=== PATIENT | male | born 1960 | race Caucasian/White ===

== ENCOUNTER → 2018-06-02 09:50 | Outpatient (CLI) | payer BC, SELFPAY ==
[2018-06-02 12:27] LABS: Absolute Lymphocyte Count 3.25 X10^3/ul (0.83-4.51); Absolute Neutrophil Count 6.8 X10^3/uL (2.0-7.7); Basophil# 0.08 X10^3/uL; Basophil% 0.7 % (0-1); Eosinophil# 0.28 X10^3/uL; Eosinophils% 2.5 % (0-5); Hematocrit 45.5 % (40-54); Hemoglobin 15.2 g/dl (13.0-16.5); Lymphocyte # 3.25 X10^3/ul (4.0); Lymphocyte % 28.8 % (19-41); Mean Corp Hgb Conc 33.4 g/gl (32-36); Mean Corpuscular Volume 98.9 fL (80-94); Mean Platelet Vol. 9.8 fl (6.2-12.0); Monocyte# 0.86 X10^3/uL; Monocyte% 7.6 % (0-10); Neutrophil % 60.2 % (47-70); Platelet Count 205 K/mm3 (150-450); RBC Distribution Width CV 12.7 % (11.6-14.6); RBC Distribution Width SD 46.2 fl (35.1-43.9); White Blood Count 11.3 K/mm3 (4.4-11.0)
[2018-06-02 12:39] LABS: POSITIVE COUNT NO; POSITIVE DIFFERENTIAL NO; POSITIVE MORPHOLOGY NO
[2018-06-02 12:44] LABS: ALB/GLOB Ratio 1.1 RATIO (0.9-2.4); AST(SGOT) 19 U/L (15-37); Alanine Aminotransfer ALT/SGPT 23 U/L (16-61); Albumin, Serum 3.8 g/dL (3.2-5.0); Alkaline Phosphatase 79 U/L (45-117); Anion Gap 5 (5-15); BUN 12 mg/dL (7-18); BUN/Creat Ratio 12.1 RATIO (10-20); Calcium,Total 8.4 mg/dL (8.5-10.1); Chloride 106 mmol/L (98-107); Cholesterol 164 mg/dL (200); Creatinine, Serum 0.99 mg/dL (0.70-1.30); EST Glomerular Filtration Rate 83 mL/min (>60); Est Glom Filt Rate - Afr Amer 100 mL/min (>60); Globulin 3.5 g/dL (2.2-4.2); Glucose 76 mg/dL (74-106); High Density Lipoprotein 36 mg/dL; PSA,Total - Annual Screen 1.29 ng/mL (0.00-4.00); Potassium 4.1 mmol/L (3.5-5.1); Protein, Total 7.3 g/dL (6.4-8.2); Sodium Level 140 mmol/L (136-145); Triglycerides 124 mg/dL; Very Low Density Lipoprotein 25 mg/dL (5-40)
== END ==
PROVIDERS: Family Provider Family Medicine; PCP Family Medicine; Visit Provider Family Medicine
DX: Z00.01 Encounter for general adult medical examination with abnormal findings (principal); Z12.5 Encounter for screening for malignant neoplasm of prostate
CPT/HCPCS: 36415; 80053; 80061; 84153; 85025; G0103

== ENCOUNTER 2019-04-03 17:00 | Emergency (ER) | payer BC, SELFPAY ==
[2019-04-03 17:01] VITALS: BP 149/93; PULSE 72; RESP 16; TEMP 36.3; O2SAT 96; BMI 24.4
--- NOTE | 2019-04-03 17:09 | ED.DCSUM_ITS ---
History of Present Illness Chief Complaint: Back Informant: Patient Onset: Yesterday Context: Gradual Onset Timing: Continuous Current Severity: Moderate Maximum Severity: Moderate Narrative: The patient presents to the emergency department for exacerbation of his back pain. Patient has had 2 prior lumbar surgeries. He states on Tuesday, he was moving a full. He states he was lifting it up. He really did not feel much until the next day. Since then, he had persistent pain in his low back. It does not radiate down his legs. He denies any difficulty urinating or moving his bowels. He does have significant allergies to pain medication. He is scheduled to see his spine surgeon, but not until . He states just came here because he cannot get his pain under control. He denies any direct trauma. He has not fallen. He states his gait has been normal and steady. Prior similar symptoms: Yes Recent Illness/Hospitalization: No Past Medical History - Allergies and Home Meds Allergies/Adverse Reactions: Allergies codeine Allergy (Unknown, Verified 10/07/16 08:14) Unknown hydrocodone bitartrate [From Vicodin] Allergy (Verified 10/07/16 08:14) Other oxycodone HCl [From Percocet] Allergy (Verified 10/07/16 08:14) Other Primary Care Physician: Anam Quintero DO [Primary Care Provider] - Prior records reviewed: Yes Past Medical History: - - GERD Surgical History: - - Prior back surgery Smoking Status: Current every day smoker Review of Systems General: Denies: Chills, Fever, Sweats Eyes: Denies: Visual changes - bilaterally, Diplopia ENT: Denies: Rhinorrhea, Sore throat Cardiovascular: Denies: Chest pain, Palpitations Respiratory: Denies: Dyspnea, Cough, Dyspnea on exertion Gastrointestinal: Denies: Abdominal pain, Nausea, Vomiting, Diarrhea, Melena, Hematochezia Genitourinary: Denies: Dysuria, Hematuria, Frequency Musculoskeletal: Reports: Back pain. Denies: Extremity Pain Skin: Denies: Rash, Wounds Neurological: Denies: Headache, Weakness, Numbness Physical Exam Vital Signs/Narrative: Vital Signs Temp Pulse Resp BP Pulse Ox 04/03/19 17:01 97.3 F L 72 16 149/93 H 96 Inital Vital Signs reviewed: Yes General: Well nourished, Well developed, No Acute Distress Head: Normocephalic, Atraumatic Eyes: Perrl, EOMI ENT: Moist mucous membranes, No rhinorrhea Neck: Supple, Nontender Cardiovascular: Regular rate, Regular rhythm, No murmurs Respiratory: No distress, CTA bilaterally, Chest nontender Abdomen: Soft, Nontender, Nondistended, Normal bowel sounds, No masses. Negative for: Pulsatile mass Back: Normal Inspection, - - Paraspinal tenderness on the right. Normal pulses. Normal reflexes. No weakness. No weakness of dorsiflexion, plantar flexion, or extensor hallucis longus.. Negative for: Spinal tenderness Extremities: Nontender, No edema Skin: Normal color, No rash Neurological: Alert, Oriented x3, Cranial nerves II-XII grossly intact, Normal Strength, Normal Sensation Psychological: Normal affect, Normal Mood Diagnostic/Tx/Re-eval - Medical Decision Making The patient has a reassuring physical exam. He has no red flag symptoms. He has normal reflexes. He has had no symptoms of discitis, epidural abscess, and he has had no trauma. The patient was treated with IM analgesics and anti- inflammatories. I will give him a short course of antispasmodics for home. He will follow-up with his spine surgeon as previously scheduled or return with any worsening symptoms. Impression 1. Exacerbation of low back pain ED Disposition - Plan for ED Patient: Instructions: Back Sprain/Strain Prescriptions: Diazepam [Valium] 5 mg PO Q8 PRN #10 tab PRN Reason: Muscle Spasm Prescription Printed Referrals: Anam Quintero DO [Primary Care Provider] -
[2019-04-03] MEDS: Ketorolac 60 MG/2 ML Vial IM (17:21)
[2019-04-03] MEDS: HYDROmorphone 1 MG/ML Syringe IM (17:22)
[2019-04-03 17:57] VITALS: RESP 16
== END 2019-04-03 17:58 | disposition home or self-care (01) ==
PROVIDERS: Emergency Provider Emergency Medicine; Family Provider Family Medicine; PCP Family Medicine
DX: M54.5 Low back pain (principal); K21.9 Gastro-esophageal reflux disease without esophagitis; F17.200 Nicotine dependence, unspecified, uncomplicated; Z88.5 Allergy status to narcotic agent
CPT/HCPCS: 96372; 99282

== ENCOUNTER 2019-04-06 14:49 | Emergency (ER) | payer BC, SELFPAY ==
[2019-04-06 14:51] VITALS: BP 143/85; PULSE 61; RESP 18; TEMP 36.4; O2SAT 98; BMI 25.1
[2019-04-06] MEDS: HYDROmorphone 1 MG/ML Syringe SC (16:07)
--- NOTE | 2019-04-06 16:20 | RAD_ITS ---
STUDY: X-RAY - LUMBAR SPINE REASON FOR EXAM: Male, 59 years old. Low back pain TECHNIQUE: 3 view(s) of the lumbar spine were obtained. COMPARISON: None FINDINGS: There is no evidence of fracture or dislocation in the lumbar spine. The vertebral body heights and disc spaces are well-maintained. Mild to moderate osteophytosis is present from L2 through L4. RAD/Lumbar Spine 2 or 3 Views IMPRESSION: No fracture or dislocation in the lumbar spine. Mild to moderate osteophytosis from L2 through L4. Electronically Signed: Travis Zhou, at 16:43 EDT Tel , Service support ,
--- NOTE | 2019-04-06 16:20 | ED.DCSUM_ITS ---
History of Present Illness Chief Complaint: Back Narrative: Patient presenting for evaluation secondary to back pain. Patient has a underlying history of having some back issues in the past, had 2 surgeries most recent being in August 2017. Patient states that about 5 days ago he was lifting a 4 maki into the back of a truck and injured his back. He reports that he had a sudden onset of back pain at that point that seemed to get somewhat better. He was seen in the emergency department for this earlier this week, received analgesia had a reassuring exam and was discharged. Patient had a follow-up appointment with his spine surgeon yesterday who placed him on a course of prednisone and ordered him a MRI to be performed in 10 days. Patient states that he is having worsening pain since his appointment yesterday and now has some radiation down his right leg. He reports that the pain is worse with trying to weight-bear, and is associated with some subjective feelings of numbness. Patient denies that he is having any sort of fevers, unintended weight loss, night sweats. No recent surgeries or injections. No history of IV drug abuse in the past. No bowel or bladder incontinence. Review of systems otherwise negative. Past Medical History - Allergies and Home Meds Allergies/Adverse Reactions: Allergies codeine Allergy (Unknown, Verified 04/06/19 14:50) Unknown hydrocodone bitartrate [From Vicodin] Allergy (Verified 04/06/19 14:50) Other oxycodone HCl [From Percocet] Allergy (Verified 04/06/19 14:50) Other Primary Care Physician: Anam Quintero DO [Primary Care Provider] - Past Medical History: - - Prior back pain and back surgeries Surgical History: - - Prior back surgery Smoking Status: Current every day smoker Review of Systems All systems negative except as indicated Musculoskeletal: Reports: Back pain Physical Exam Vital Signs/Narrative: Vital Signs Temp Pulse Resp BP Pulse Ox 04/06/19 14:51 97.6 F L 61 18 143/85 H 98 General: Well nourished, Well developed Head: Normocephalic, Atraumatic Eyes: Perrl, EOMI ENT: Moist mucous membranes, No rhinorrhea Neck: Supple, Nontender Cardiovascular: Regular rate, Regular rhythm, No murmurs, - - 2+ radial and 2+ DP pulses bilaterally symmetric Respiratory: No distress, CTA bilaterally, Chest nontender Abdomen: Soft, Nontender, Nondistended, Normal bowel sounds. Negative for: Mass - No palpable pulsatile mass Back: Normal Inspection, - - Minimal lumbar midline tenderness to palpation with no step-offs noted Extremeties: Nontender, No edema Skin: Normal color, No rash Neuro: Alert, Oriented, - - 5 out of 5 strength at the hip knee ankle and foot. Normal sensation over all dermatomes. 2+ patellar and Achilles reflexes bilate rally symmetric, negative clonus and Babinski. Psychological: Normal affect Diagnostic/Tx/Re-eval X-Ray: LS SPine, Read by ED Physician, Read by Radiologist, No Fracture, Normal Bony Alignment - Medical Decision Making Patient presented secondary to back pain. As this is his second visit for back pain, I did do imaging which was negative by my personal review as well as radiology. Patient was given subcutaneous Dilaudid. Repeat evaluation of the patient shows him to have improved pain, and he was able to ambulate with the help of walker. Patient at this time has no red flag signs or symptoms. He has normal motor sensory exam, no signs of cauda equina spinal epidural abscess or hematoma or other serious pathology that would require neuroimaging or immediate intervention. I reviewed the patient's prescription reporting record, he does not have any opiate medications on there at all actually, so the patient will be provided with a protracted course of p.o. Dilaudid as he states that that is what he is able to take and that is what helps. Patient has follow-up with his spine surgeon in 10 days for MRI and repeat evaluation. Disposition: Home ED Disposition - Plan for ED Patient: Disposition: Home or Assisted Living Diagnosis: Lumbar radiculopathy Prescriptions: HYDROmorphone tablet [Dilaudid] 2 mg PO BID PRN PRN 7 Days #20 tab PRN Reason: Pain Prescription Printed Additional Instructions: Followup with your spine surgeon
[2019-04-06 17:08] VITALS: BP 140/89; PULSE 60; RESP 16; O2SAT 96
--- NOTE | 2019-04-06 17:29 | ED.DEP ---
ED Disposition - Plan for ED Patient: Disposition: Home or Assisted Living Diagnosis: Lumbar radiculopathy Instructions: BACK PAIN w/ SCIATICA Prescriptions: HYDROmorphone tablet [Dilaudid] 2 mg PO BID PRN PRN 7 Days #20 tab PRN Reason: Pain Prescription Printed Referrals: Anam Quintero DO [Primary Care Provider] - Additional Instructions: Followup with your spine surgeon
== END 2019-04-06 17:57 | disposition home or self-care (01) ==
PROVIDERS: Emergency Provider Emergency Medicine; Family Provider Family Medicine; PCP Family Medicine
DX: M54.16 Radiculopathy, lumbar region (principal); F17.200 Nicotine dependence, unspecified, uncomplicated; Z88.5 Allergy status to narcotic agent
CPT/HCPCS: 72100; 99283

== ENCOUNTER → 2019-06-26 07:46 | Outpatient (CLI) | payer BC, SELFPAY ==
[2019-06-26 08:27] LABS: Absolute Lymphocyte Count 2.98 X10^3/uL (0.83-4.51); Absolute Neutrophil Count 7.2 X10^3/uL (2.0-7.7); Basophil# 0.09 X10^3/uL; Basophil% 0.8 % (0-1); Eosinophil# 0.33 X10^3/uL; Eosinophils% 2.9 % (0-5); Hematocrit 46.2 % (40-54); Hemoglobin 15.4 g/dL (13.0-16.5); Lymphocyte # 2.98 X10^3/ul (4.0); Lymphocyte % 26.3 % (19-41); Mean Corp Hgb Conc 33.3 g/dL (32-36); Mean Corpuscular Hgb 33.3 pg (27.0-32.0); Mean Corpuscular Volume 99.8 fL (80-94); Mean Platelet Vol. 9.1 fl (6.2-12.0); Monocyte# 0.73 X10^3/uL; Monocyte% 6.4 % (0-10); NRBC Flagged by Analyzer 0 % (0-5); Neutrophil # 7.16 X10^3/uL (2.7-7.7); Neutrophil % 63.2 % (47-70); Platelet Count 214 K/mm3 (150-450); RBC Distribution Width CV 12.2 % (11.6-14.6); RBC Distribution Width SD 45.2 fl (35.1-43.9); Red Blood Count 4.63 M/mm3 (4.6-6.2); White Blood Count 11.3 K/mm3 (4.4-11.0)
[2019-06-26 08:54] LABS: AST(SGOT) 14 U/L (15-37); Alanine Aminotransfer ALT/SGPT 16 U/L (16-61); Albumin, Serum 3.6 g/dL (3.2-5.0); Alkaline Phosphatase 77 U/L (45-117); Anion Gap 3 (5-15); BUN 11 mg/dL (7-18); BUN/Creat Ratio 11.8 RATIO (10-20); Calcium,Total 8.7 mg/dL (8.5-10.1); Chloride 111 mmol/L (98-107); Cholesterol 182 mg/dL (200); Creatinine, Serum 0.93 mg/dL (0.70-1.30); EST Glomerular Filtration Rate 88 mL/min (>60); Est Glom Filt Rate - Afr Amer 107 mL/min (>60); Globulin 3.5 g/dL (2.2-4.2); Glucose 89 mg/dL (74-106); High Density Lipoprotein 37 mg/dL; PSA,Total - Annual Screen 1.08 ng/mL (0.00-4.00); Potassium 4.2 mmol/L (3.5-5.1); Protein, Total 7.1 g/dL (6.4-8.2); Sodium Level 144 mmol/L (136-145); Triglycerides 145 mg/dL; Very Low Density Lipoprotein 29 mg/dL (5-40)
== END ==
PROVIDERS: Family Provider Family Medicine; PCP Family Medicine; Referring Provider Family Medicine; Visit Provider Family Medicine
DX: Z00.00 Encounter for general adult medical examination without abnormal findings (principal); Z12.5 Encounter for screening for malignant neoplasm of prostate
CPT/HCPCS: 36415; 80053; 80061; 84153; 85025; G0103

== ENCOUNTER → 2020-07-22 08:43 | Outpatient (CLI) | payer BC, SELFPAY ==
[2020-07-22 09:16] LABS: Absolute Lymphocyte Count 2.65 X10^3/uL (0.83-4.51); Absolute Neutrophil Count 5.5 X10^3/uL (2.0-7.7); Basophil# 0.08 X10^3/uL; Basophil% 0.9 % (0-1); Eosinophil# 0.26 X10^3/uL; Eosinophils% 2.8 % (0-5); Hemoglobin 15.2 g/dL (13.0-16.5); Lymphocyte # 2.65 X10^3/ul (4.0); Lymphocyte % 28.7 % (19-41); Mean Corp Hgb Conc 32.3 g/dL (32-36); Mean Corpuscular Hgb 31.6 pg (27.0-32.0); Mean Corpuscular Volume 97.7 fL (80-94); Mean Platelet Vol. 9.3 fl (6.2-12.0); Monocyte# 0.75 X10^3/uL; Monocyte% 8.1 % (0-10); NRBC Flagged by Analyzer 0 % (0-5); Neutrophil # 5.45 X10^3/uL (2.7-7.7); Neutrophil % 59.2 % (47-70); Platelet Count 178 K/mm3 (150-450); RBC Distribution Width CV 11.9 % (11.6-14.6); RBC Distribution Width SD 43.8 fl (35.1-43.9); Red Blood Count 4.81 M/mm3 (4.6-6.2); White Blood Count 9.2 K/mm3 (4.4-11.0)
[2020-07-22 09:45] LABS: AST(SGOT) 15 U/L (15-37); Alanine Aminotransfer ALT/SGPT 17 U/L (16-61); Albumin, Serum 3.5 g/dL (3.2-5.0); Alkaline Phosphatase 92 U/L (45-117); Anion Gap 3 (5-15); BUN 11 mg/dL (7-18); BUN/Creat Ratio 10.3 RATIO (10-20); Calcium,Total 8.6 mg/dL (8.5-10.1); Chloride 109 mmol/L (98-107); Cholesterol 152 mg/dL (200); Creatinine, Serum 1.07 mg/dL (0.70-1.30); EST Glomerular Filtration Rate 75 mL/min (>60); Est Glom Filt Rate - Afr Amer 91 mL/min (>60); Globulin 3.6 g/dL (2.2-4.2); Glucose 82 mg/dL (74-106); High Density Lipoprotein 37 mg/dL; Potassium 4.3 mmol/L (3.5-5.1); Protein, Total 7.1 g/dL (6.4-8.2); Sodium Level 143 mmol/L (136-145); Triglycerides 90 mg/dL; Very Low Density Lipoprotein 18 mg/dL (5-40)
== END ==
LOC: LAB 08:45
PROVIDERS: PCP Family Medicine; Referring Provider Family Medicine; Visit Provider Family Medicine
DX: Z00.00 Encounter for general adult medical examination without abnormal findings (principal); Z12.5 Encounter for screening for malignant neoplasm of prostate
CPT/HCPCS: 36415; 80053; 80061; 84153; 85025; G0103

== ENCOUNTER → 2020-08-05 14:02 | Outpatient (CLI) | payer BC, SELFPAY ==
--- NOTE | 2020-08-05 14:05 | BI_ITS ---
MAMMOGRAPHY - BILATERAL DIAGNOSTIC REASON FOR EXAM: Male, 60 years old. Right breast lump. PERTINENT HISTORY: Non-contributory. TECHNIQUE: Digital bilateral breast rizwan (3D mammographic acquisition) in the CC and MLO projections. 2-D mediolateral oblique (MLO) and craniocaudad (CC) views of both breasts were obtained. CAD: Full Field Digital Mammography with Computer Added Detection was performed. COMPARISON: None. Baseline examination. FINDINGS: Breast Composition: The breasts are almost entirely fatty. There are no dominant masses or suspicious calcifications. No other significant abnormalities are identified. BI/DIAG MAMM W/CAD, BILAT IMPRESSION: Negative diagnostic mammogram. With the patient''s history of a palpable lump in the right breast, correlation with ultrasound is recommended. ASSESSMENT CATEGORY: BIRADS Category 0: Incomplete. Need additional imaging evaluation. A letter regarding these results will be sent to the patient by the facility within 30 days. Approximately 10% of breast cancers are not detected by mammography. A normal mammogram should not delay biopsy of a clinically suspicious abnormality. Electronically Signed: Roberto Alford MD at 15:25 EST , Service support ,
--- NOTE | 2020-08-05 14:05 | US_ITS ---
STUDY: ULTRASOUND BREAST - RIGHT REASON FOR EXAM: Male, 60 years old. Palpable lump in the right breast. TECHNIQUE: Axial and longitudinal images of the RIGHT breast were performed with a high resolution ultrasound transducer. # OF IMAGES: 22 COMPARISON: Comparison is made with prior mammogram done earlier in the day. FINDINGS: RIGHT Breast: The palpable abnormality corresponds to a 1 cm x 1 cm x 0.4 cm hypoechoic solid nodule. A biopsy is recommended. US/Breast Limited Unilateral IMPRESSION: The palpable abnormality corresponds to a 1 cm x 1 cm x 0.4 cm hypoechoic solid nodule. A biopsy recommended. ASSESSMENT CATEGORY: BIRADS Category 4: Suspicious - Biopsy Should Be Considered. A letter regarding these results will be sent to the patient by the facility within 30 days. Electronically Signed: Roberto Alford MD at 9:14 EST , Service support ,
== END ==
PROVIDERS: PCP Family Medicine; Referring Provider Family Medicine; Visit Provider Family Medicine
DX: N63.41 Unspecified lump in right breast, subareolar (principal); F17.200 Nicotine dependence, unspecified, uncomplicated
CPT/HCPCS: 76642; 77062; 77066; G0279

== ENCOUNTER → 2020-08-19 15:23 | Outpatient (CLI) | payer BC, SELFPAY ==
--- NOTE | 2020-08-19 | BRBX_PTH ---
PATIENT: CYNDIE JENNINGS LOC: [facility] U#:[id number] AGE/SX: 65/M ROOM: RE08/19/[address]: Dr. Hao Degroot MD : 1960 BED: DIS: SPEC #: [id number] RECD: 08/19/20 15:13 STATUS: MARIPOSA KENDRICK #: [id number] TANIA: 08/19/20 00:[address]: Hao Degroot DEPT: SURGICAL PATHOLOGY RECD BY: Ralph Beltran ENTERED: 08/20/20 09:36 SP TYPE: BREAST BX OTHR DR: Dr. Anam Quintero DO Tissues: Right breast, NOS Procedures: Special Stain Group I Surgery Specimen Level IV AFB Stain (control) GMS Stain (control) HEADER OPERATION: Excisional right breast biopsy PRE-OP DIAGNOSIS: Right breast mass TISSUE SUBMITTED: Right breast mass, ? cyst MICROSCOPIC DIAGNOSIS Right breast mass, excisional biopsy: Granulation with associated acute and chronic inflammation. Negative for acid-fast bacilli and fungal organisms. No evidence of malignancy. See comment. AM:leena 08/21/2020 COMMENT AFB and GMS stains with matched controls were used in the evaluation of this case. MICROSCOPIC DESCRIPTION Slides are reviewed. GROSS DESCRIPTION Received in fixative is one container labeled with the patient's name and designated right breast tissue. The specimen consists of two irregular fragments of yellow-pink soft tissue that in aggregate measure 1.6 x 1 x 0.5 cm. The largest fragment is bisected and totally submitted along with the smaller fragment in one cassette. / AM:leena 08/20/20 TC:2 CPT: 39879, 35823 x2
== END ==
LOC: LABSPEC 15:34
PROVIDERS: PCP Family Medicine; Referring Provider Surgery; Visit Provider Surgery
DX: N63.0 Unspecified lump in unspecified breast (principal)
CPT/HCPCS: 88305; 88312

== ENCOUNTER 2021-10-12 06:01 | Day surgery (SDC) | payer BC, SELFPAY ==
[2021-10-12] VITALS (7 sets, daily range): BP systolic 115–128; BP diastolic 74–85; PULSE 48–57; RESP 16–18; TEMP 36.4–37; O2SAT 93–98; BMI 21.5
[2021-10-12] MEDS: Lactated Ringers 1,000 ML 15 ML IV (06:34)
--- NOTE | 2021-10-12 07:18 | PCM.HP.BLA ---
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 Is patient in pain?: No Allergies guaifenesin [From Mucinex D] Allergy (Mild, Verified 10/05/21 14:05) PT UNSURE OF REACTION pseudoephedrine [From Mucinex D] Allergy (Mild, Verified 10/05/21 14:05) PT UNSURE OF REACTION codeine Allergy (Unknown, Verified 10/05/21 14:05) Unknown hydrocodone bitartrate [From Vicodin] Allergy (Verified 10/05/21 14:05) Other oxycodone HCl [From Percocet] Allergy (Verified 10/05/21 14:05) Other Medications aspirin 81 mg PO DAILY@0800 10/26/14 [History Confirmed 10/05/21] multivitamin 1 tab PO DAILY 10/26/14 [History Confirmed 10/05/21] gabapentin 600 mg PO TIDCM 04/06/19 [History Confirmed 10/05/21] hydromorphone 2 mg tablet 2 mg PO Q6H 08/11/20 [History Confirmed 10/05/21] sildenafil 25 mg tablet 25 mg PO DAILY PRN 08/11/20 [History Confirmed 10/05/21] PFSH Medical History (Updated 10/06/21 @ 11:[address] Hao Degroot MD) Chronic back pain Erectile dysfunction GERD (gastroesophageal reflux disease) Herniated disc Neuropathy Venous insufficiency Surgical History History of back surgery S/P hemorrhoidectomy S/P hernia surgery S/P laparoscopic cholecystectomy S/P shoulder surgery Social History Smoking Status: Current every day smoker alcohol intake: never HPI HPI HPI: CYNDIE JENNINGS, is a 61 M who presents to the office today for right breast lesion. The patient had excision of a sebaceous cyst in the right breast about a year ago. He says he was fine for about 6 months and then started having infections in this area and the does spontaneously drained. He recently had an infection about 2 months ago which was inflamed and drained and required antibiotics. ROS General General: No weight change or fatigue HEENT HEENT: No difficulty swallowing Endo Endocrine: No thyroid disease Musc Musculoskeletal: No back problems or arthritis Cardio Cardiovascular: No pacemaker, heart disease, atrial fibrillation, high blood pressure, heart attack, heart stent, palpitations or chest pain Psych Psychiatric: No depression or anxiety Resp Respiratory: No shortness of breath, No cough, No COPD, No asthma and No emphysema Gastro Gastrointestinal: No abdominal pain, No nausea or vomiting, No diarrhea, No constipation, No blood in stool, No acid reflux, No hemorrhoids, No ulcers, No gallbladder problem and No black,tarry stools Kunal Hematologic: No blood thinners Exam Const General: cooperative Orientation: alert and oriented x3 HENMT Head: normal to inspection Neck Neck: normal visual inspection and full ROM Chest Chest palpation & inspection: normal inspection of the chest Other: Right breast mass under the nipple Resp Effort & Inspection: normal respiratory effort Auscultation: clear to auscultation bilaterally Cardio Rate: regular rate Rhythm: regular rhythm GI Inspection: non-distended Palpation: soft and nontender Skin General: no rashes or lesions noted Neuro General: patient alert and patient oriented x3 Extrem General: full ROM Psych Appearance: grossly normal Mental Status: mental status grossly normal Assessment and Plan Assessment and Plan (1) Inclusion cyst of right breast: Status: Acute Plan - Dr. Hao Degroot MD: The patient has a likely sebaceous cyst of the right breast under the nipple which is recurrently becoming infected. I discussed more thorough excision and debridement in the operating room. I discussed the risks of bleeding and infection with him and I will taken to the operating room for excision of this tissue. Hao Degroot MD Pager: [facility] [address] [place] [address], [address] [place] [address] Office: I have re-examined the patient. There are no clinical changes since date of exam.
[2021-10-12] MEDS: Cefazolin 2 GM in 0.9% Normal Saline 100 ML IV (07:29)
--- NOTE | 2021-10-12 07:30 | CYST_PTH ---
PATIENT: CYNDIE JENNINGS LOC: [facility] [place] U#:[id number] AGE/SX: 61/M ROOM: RE10/12/[address]: Dr. Hao Degroot MD : 1960 BED: DIS: 10/12/2021 SPEC #: [id number] RECD: 10/12/21 08:57 STATUS: MARIPOSA MARKS #: [id number] TANIA: 10/12/21 07:[address]: Hao Degroot DEPT: SURGICAL PATHOLOGY RECD BY: Barbie Abrams ENTERED: 10/12/21 09:25 SP TYPE: Cyst OTHR DR: Dr. Anam Quintero, DO Tissues: CYST Procedures: Surgery Specimen Level IV HEADER OPERATION: Excision sebaceous cyst, breast PRE-OP DIAGNOSIS: Inclusion cyst of right breast TISSUE SUBMITTED: Right breast sebaceous cyst MICROSCOPIC DIAGNOSIS Cyst of right breast, excisional biopsy: Densely collagenized tissue with focal duct ectasia and focal acute inflammation. No evidence of malignancy. See comment. AM:leena 10/13/2021 COMMENT The changes may represent ruptured cyst with chronic resolution. Clinical correlation is suggested. Reference is made to the patient's right breast mass, excisional biopsy ([id number]) in which granulation with associated acute and chronic inflammation was identified. MICROSCOPIC DESCRIPTION Slides are reviewed. GROSS DESCRIPTION Received in fixative is one container labeled with the patient's name and designated right breast sebaceous cyst. The specimen consists of three variable sized pieces of indurated tissue measuring in aggregate 2.5 x 1.8 x 0.6 cm. The larger pieces are bisected. The entire specimen is submitted in one cassette. / SJ:leena 10/12/2021 TC:2 CPT: 91561
[2021-10-12] MEDS: Bupivacaine Mpf 0.5% 30 ML VIAL (07:41)
--- NOTE | 2021-10-12 08:00 | PCM.OPRPT ---
Problems Associated Problem List Diagnoses (1) Inclusion cyst of right breast: Report of Operation Date of Procedure: 10/12/21 Pre-Operative Diagnosis: Inclusion cyst of the right nipple Post-Operative Diagnosis: Pain Surgery/Procedure Performed:: Excision of right nipple inclusion cyst Specimen's removed: Right breast tissue Description of Procedure: Patient was brought back to the operating room and MAC anesthesia was induced. The right breast was prepped and draped in usual sterile fashion. Next an incision was injected with local anesthetic superior to the nipple and then an incision was made with a scalpel. Electrocautery was used to made hemostasis. All the tissue behind the nipple was excised including a likely cyst. This was sent for pathology. The cavity was irrigated and suctioned dry and hemostasis was obtained using electrocautery. The incision was then closed with interrupted 3-0 Vicryl suture and then Dermabond. Patient tolerated the procedure well was brought to PACU in stable condition.
--- NOTE | 2021-10-12 08:01 | EX.PCM.DISCH ---
Discharge Instructions Procedure Breast Surgery Diet Discharge Diet: No restrictions Activity Discharge Activity: May Drive (tomorrow) May shower in (days): 1 Additional Activity Instructions:: Return to work Tuesday. Ibuprofen and Tylenol for any discomfort. Dressing / Incision Call your doctor if your incision/area has: Continuous Slow Oozing and Increased Redness Call your doctor if you observe: Fever of 101 or Higher Suture Line Care: Avoid Pulling/Pushing and Avoid Pinching/Bending Cleanse incision/area with: Soap & Water Follow Up Care Please Follow Up With: Hao Degroot MD When: Please call to schedule follow up appointment as needed. [phone] Test Results: Test results from this visit will be discussed in further detail at your follow-up appointment, if applicable. Discharge Plan Admission Attending Provider: Hao Degroot Primary Care Provider: Anam Quintero Discharge Orders/Prescriptions Prescriptions: No Action hydromorphone 2 mg tablet 2 mg PO Q6H PRN (Reason: Pain) RF: 0 sildenafil 25 mg tablet 25 mg PO DAILY PRN (Reason: Erectile Dysfunction) RF: 0 multivitamin 1 TABLET tablet 1 tab PO DAILY RF: 0 aspirin 81 MG tablet 81 mg PO DAILY@0800 RF: 0 gabapentin 600 MG tablet 1,200 mg PO BID RF: 0 Referrals / Follow Up: Anam Quintero DO [Primary Care Provider] - Disposition Disposition (needs filled in before D/C Order can be placed): Home, Self Care
== END 2021-10-12 23:59 | disposition home or self-care (01) ==
LOC: SDC 06:02 → AC 06:02
PROVIDERS: PCP Family Medicine; Referring Provider Surgery; Visit Provider Surgery
PROC: (CPT 19120; principal; 2021-10-12 07:15)
DX: N60.01 Solitary cyst of right breast (principal); G89.29 Other chronic pain; M54.9 Dorsalgia, unspecified; F17.200 Nicotine dependence, unspecified, uncomplicated; K21.9 Gastro-esophageal reflux disease without esophagitis; Z79.82 Long term (current) use of aspirin
CPT/HCPCS: 19120; 00400; 87426; 88304; 88305; J7120; J2405